=== PATIENT | female | born 1960 ===

== ENCOUNTER 2018-03-03 12:15 | Outpatient (CLI) | payer OTHER | END 2018-03-03 12:16 | disposition home or self-care (01) | LOC: C.RADIC 12:15 | DX: M54.5 Low back pain (principal); R30.0 Dysuria; Z23 Encounter for immunization; D64.9 Anemia, unspecified; D51.8 Other vitamin B12 deficiency anemias ==

== ENCOUNTER 2018-05-02 06:14 | Day surgery (SDC) | payer OTHER ==
[2018-04-25 10:42] VITALS: BMI 29.1
[2018-05-02] MEDS ORDERED: HYDROmorphone 0.5 mg/0.5 ml ISec IVP PRN (07:46)
[2018-05-02] MEDS ORDERED: Midazolam 2 MG/2 ML VIAL ONE (08:03)
[2018-05-02] MEDS ORDERED: Propofol 10 mg/ml Inj (20 ML) ONE (08:03)
[2018-05-02] MEDS ORDERED: ceFOXitin IV 1 gm/100 ml in NS 1 GM/100 ML BAG ONE (08:37)
[2018-05-02 09:28] VITALS: O2SAT 100
[2018-05-02 11:10] VITALS: BP 97/60; PULSE 57; RESP 18; TEMP 97
--- NOTE | 2018-05-03 06:38 | OP ---
PROCEDURE DATE: 05/02/2018 PREOPERATIVE DIAGNOSIS: A 58-year-old 2, para 2 with postmenopausal bleeding and endometrial thickening. POSTOPERATIVE DIAGNOSIS: A 58-year-old 2, para 2 with postmenopausal bleeding and endometrial thickening with endometrial polyp. SURGEON: Benny Beltre MD MECHANICAL MAINTENANCE FOREMAN: None. TYPE OF ANESTHESIA: General. ANESTHESIOLOGIST: COMPLICATIONS: None. PROCEDURE PERFORMED: MyoSure, D and C, cystoscopy. DESCRIPTION OF PROCEDURE: After informed consent was obtained, the patient was brought into the operating room, placed on the table where general anesthesia was administered. Once the anesthesia was found to be adequate, the patient was prepped and draped in the normal sterile fashion. Examination of the uterus revealed it to be 8 weeks' size. No pelvic or adnexal masses. Anterior lip of the cervix was grasped with a tenaculum. Gentle dilatation of the cervix was done. Uterus was found to be a polyp on the posterior wall of the uterus. Pictures were taken, and the decision was made to use the MyoSure. MyoSure was used to take out the polyp. After that, sharp curettage of the endometrium was done. The ECC was taken. Then, the tenaculum was taken out. Hysteroscope was introduced again which showed no polyp. The patient tolerated the procedure well. Lap, sponge, and instrument counts were correct x2. The deficit was only 50 mL. Benny Beltre MD
== END 2018-05-02 11:12 | disposition home or self-care (01) ==
LOC: C.SDS 06:14
PROVIDERS: ATTEND Obstetrics & Gynecology
DX: N85.00 Endometrial hyperplasia, unspecified (principal); N95.0 Postmenopausal bleeding; N84.0 Polyp of corpus uteri
CPT/HCPCS: 52000; 58563; 88305; J1885; J2001; J2250; J2704; J3010